=== PATIENT | male | born 1985 | race Caucasian/White ===

== ENCOUNTER 2018-12-20 22:21 | Emergency (ER) | payer OTHER, SELFPAY ==
[2018-12-20 22:37] VITALS: BP 111/69; PULSE 88; RESP 18; TEMP 37.3; O2SAT 98; BMI 21.9
[2018-12-20 23:05] LABS: Influenza A and B by PCR Rapid Negative (Negative)
--- NOTE | 2018-12-20 23:23 | ED.URI ---
HPI - URI/Sore Throat General Chief Complaint: Upper Respiratory Symptoms Stated Complaint: FEVER,COUGH SORE THROAT Time Seen by Provider: 12/20/18 22:24 Source: patient Mode of arrival: ambulatory Limitations: no limitations History of Present Illness HPI Narrative: 33M nonsmoker, otherwise healthy presents with a few days of fever, chills, severe throat pain and difficulty swallowing. He has very minimal, occasional dry cough. He denies ear pain, runny nose, N/V/D or other. MD Complaint: fever and sore throat Onset (ago): day(s) Duration: constant Severity: severe Relieving factors: nothing Exacerbating factors: swallowing Able to tolerate fluids by mouth: Yes Associated symptoms: fever and chills Treatments prior to arrival: ibuprofen Related Data Previous Rx's Medication Instructions Recorded amoxicillin-pot clavulanate 1 tab PO BID #20 tab 12/20/18 [Augmentin] Allergies Allergy/AdvReac Type Severity Reaction Status Date / Time No Known Drug Allergies Allergy Verified 12/20/18 22:41 Review of Systems Constitutional Reports chills, Reports fever(s), Denies lethargy and Denies weakness Eyes Denies change in vision, Denies eye discharge, Denies irritation and Denies loss of vision ENT Ears, Nose, Mouth, and Throat: Denies change in voice, Denies neck pain and Reports sore throat Cardiovascular Denies chest pain, Denies irregular heart rhythm, Denies lightheadedness, Denies palpitations, Denies dyspnea, Denies dyspnea on exertion and Denies orthopnea Respiratory Denies cough, Denies dyspnea, Denies dyspnea on exertion and Denies wheezing Gastrointestinal Gastrointestinal: Denies abdominal pain, Denies change in bowel habits, Denies diarrhea, Denies nausea and Denies vomiting Genitourinary Denies hematuria, Denies flank pain, Denies urinary incontinence and Denies urinary urgency Musculoskeletal Denies neck pain Integumentary/Breasts Denies pruritus, Denies erythema, Denies rash and Denies wounds Neurologic Denies confusion, Denies loss of vision and Denies weakness Psychiatric Denies anxiety, Denies confusion, Denies depression, Denies homicidal ideation and Denies suicidal ideation Endocrine Denies palpitations Hematologic/Lymphatic Denies easy bruising Allergic/Immunologic Denies wheezing PFSH Social History Smoking Status: Never smoker Social History (Reviewed 12/21/18 @ 04:20 by WILBUR Lewis Smoking Status: Never smoker Exam Narrative Exam Narrative: GEN: AOx3 and in mild distress, clearly not feeling well. Controlling secretions is painful EYES: Pupils are equal, round, and reactive to light and accommodation. Extraoccular muscles are intact bilaterally. There is no subconjunctival hemorrhage or exudate. ENT: tender anterior nodes. Large, erythematous, swolling tonsils with exudate (L>R). No signs of abscess. Uvula midline. Soft palate petechiae. CHEST: Lungs are clear to auscultation bilaterally and free of wheezes, rales, or rhonchi. Heart rate is regular rhythm, there are no murmurs, clicks, rubs, or gallops. There is no chest wall tenderness. ABD: Abdomen is soft and nontender. There is no guarding or rebound. Bowel sounds are normal in all 4 quadrants. There is no mass or organomegaly. EXT: Full painless ROM of all extremities with no loss of sensation or strength. SKIN: Warm, pink, and dry. No erythema or rash Initial Vital Signs Initial Vital Signs: Vital Signs Temperature 99.1 F 12/20/18 22:37 Pulse Rate 88 12/20/18 22:37 Respiratory Rate 18 12/20/18 22:37 Blood Pressure 111/69 12/20/18 22:37 Pulse Oximetry 98 12/20/18 22:37 Course Orders Ordered: ED Orders 12/20/18 22:43 Influenza A and B by PCR Rapid Stat 12/20/18 23:24 XR chest 2V Stat Discontinued Medications Amoxicillin/Clavulanate Potassium (Augmentin 875-125 Mg) 1 tab PO NOW ONE Stop: 12/20/18 23:51 Last Admin: 12/20/18 23:58 Dose: 1 tab Ketorolac Tromethamine (Toradol) 60 mg IM NOW ONE Stop: 12/20/18 23:56 Last Admin: 12/20/18 23:58 Dose: 60 mg Vital Signs - 8 hr 12/20/18 22:37 12/21/18 00:06 Temperature 99.1 F 99.2 F Pulse Rate 88 86 Respiratory Rate 18 16 Blood Pressure 111/69 104/70 Pulse Oximetry 98 99 MDM - URI/Sore Throat Lab Data Lab Results 12/20/18 Range/Units 22:43 Influenza A & B (PCR) Negative (Negative) Point of Care Testing Rapid Strep A Negative MDM Narrative Medical decision making narrative: Centor Score (Modified/McIsaac) for Strep Pharyngitis from [email or web address] on 12/21/2018 All calculations should be rechecked by clinician prior to use RESULT SUMMARY: 4 points 51% - 53% likelihood of strep Consider rapid strep testing and/or culture. Empiric antibiotics may be appropriate depending on the specific scenario. INPUTS: Age ?> 0 = 15-44 years Exudate or swelling on tonsils ?> 1 = Yes Tender/swollen anterior cervical lymph nodes ?> 1 = Yes Temp >38?C (100.4?F) ?> 1 = Yes Cough ?> 1 = Cough absent Patient classically presents with strep. Flu, viral, and mono considered but all thought less likely given presentation. Rapid strep negative. Our test is about 95% accurate, but ABX chosen given history and exam. Discharge Plan Departure Patient Disposition: Home Clinical Impression: Acute streptococcal pharyngitis Discharge Date/Time: 12/21/18 00:07 Interventions: ED Discharge Assessment Last Done: 12/21/18 00:06 Instructions: DI for Strep Throat Activity Restrictions/Additional Instructions: *You have been diagnosed with [acute streptococcal pharyngitis] *What to do: *Take medications as directed *Follow up with your primary care provider in 2-3 days, call for an appointment. Let them know you were seen in the Emergency Department and that we ask that you be seen in follow up *Return to ER if you should have any new, worsening or concerning symptoms Prescriptions: New amoxicillin-pot clavulanate [Augmentin] 875-125 mg tablet 1 tab PO BID Qty: 20 RF: 0
--- NOTE | 2018-12-20 23:24 | DI.RAD.S_ITS ---
PROCEDURE: XR CHEST 2V INDICATIONS: fever cough, sore throat TECHNIQUE: 2 views of the chest were acquired. COMPARISON: None. FINDINGS: Surgical changes and devices: None. Lungs and pleura: Lungs are clear. No pleural effusions or pneumothorax. Mediastinum: Mediastinal contours are normal. Heart size is normal. Bones and chest wall: No suspicious bony abnormalities. Soft tissues appear unremarkable. IMPRESSION: Normal for age, source of current fever and cough symptoms is not seen. Dictated by: Ousmane Pichardo M.D. on 12/21/2018 at 8:06 Approved by: Ousmane Pichardo M.D. on 12/21/2018 at 8:06
[2018-12-20] MEDS: KETOROLAC 60 MG/2 ML VIAL IM (23:58)
[2018-12-20] MEDS: AMOXICILLIN/CLAV 875/125 MG 1 TAB PO (23:58)
[2018-12-21 00:06] VITALS: BP 104/70; PULSE 86; RESP 16; TEMP 37.3; O2SAT 99
== END 2018-12-21 00:07 | disposition home or self-care (01) ==
PROVIDERS: Emergency Provider Emergency Medicine
DX: J02.0 Streptococcal pharyngitis (principal)
CPT/HCPCS: 71046; 87400; 87880; 96372; 99282; 99283; J1885